=== PATIENT | male | born 1945 | race Caucasian/White ===

== ENCOUNTER 2018-02-14 08:55 | Outpatient (CLI) | payer MEDICARE, OTHER, SELFPAY ==
[2018-02-14 13:00] LABS: INR 2.7 (1.0-3.5); Prothrombin Time 25.4 sec (9.3-10.8)
== END 2018-02-14 08:56 ==
PROVIDERS: PCP Internal Medicine; Visit Provider Internal Medicine
DX: I82.890 Acute embolism and thrombosis of other specified veins (principal); Z79.01 Long term (current) use of anticoagulants
CPT/HCPCS: 36415; 85610

== ENCOUNTER 2018-04-09 09:49 | Outpatient (CLI) | payer MEDICARE, OTHER, SELFPAY ==
[2018-04-09 13:32] LABS: INR 2.9 (1.0-3.5); Prothrombin Time 27.5 sec (9.3-10.8)
== END 2018-04-09 10:09 ==
PROVIDERS: PCP Internal Medicine; Visit Provider Internal Medicine
DX: I82.890 Acute embolism and thrombosis of other specified veins (principal); Z79.01 Long term (current) use of anticoagulants
CPT/HCPCS: 36415; 85610

== ENCOUNTER 2018-05-31 10:16 | Outpatient (CLI) | payer MEDICARE, OTHER, SELFPAY ==
[2018-05-31 14:28] LABS: Prothrombin Time 37.6 sec (9.3-10.8)
== END 2018-05-31 10:36 ==
PROVIDERS: PCP Internal Medicine; Visit Provider Internal Medicine
DX: I82.890 Acute embolism and thrombosis of other specified veins (principal); Z79.01 Long term (current) use of anticoagulants
CPT/HCPCS: 36415; 85610

== ENCOUNTER 2018-06-14 10:01 | Outpatient (CLI) | payer MEDICARE, OTHER, SELFPAY | END 2018-06-14 10:21 | PROVIDERS: PCP Internal Medicine; Visit Provider Internal Medicine | DX: I82.890 Acute embolism and thrombosis of other specified veins (principal); Z79.01 Long term (current) use of anticoagulants | CPT/HCPCS: 36415; 85610 ==

== ENCOUNTER 2018-11-22 12:59 | Outpatient (CLI) | payer MEDICARE, OTHER, SELFPAY ==
[2018-11-22 15:42] LABS: INR 3.1 (0.9-1.1); Prothrombin Time 31.4 sec (9.3-11.0)
== END 2018-11-22 13:19 ==
PROVIDERS: PCP Internal Medicine; Visit Provider Internal Medicine
DX: Z79.01 Long term (current) use of anticoagulants (principal); R69 Illness, unspecified
CPT/HCPCS: 36415; 85610

== ENCOUNTER 2018-12-28 10:39 | Outpatient (CLI) | payer MEDICARE, OTHER, SELFPAY ==
[2018-12-28 15:15] LABS: Prothrombin Time 34.9 sec (9.3-11.0)
[2018-12-28 15:25] LABS: INR 3.4 (0.9-1.1)
== END 2018-12-28 10:59 ==
PROVIDERS: PCP Internal Medicine; Visit Provider Internal Medicine
DX: I82.890 Acute embolism and thrombosis of other specified veins (principal); Z79.01 Long term (current) use of anticoagulants
CPT/HCPCS: 36415; 85610

== ENCOUNTER 2019-02-20 01:21 | Outpatient (CLI) | payer MEDICARE, OTHER, SELFPAY ==
[2019-02-20 12:04] LABS: INR 3.9 (0.9-1.1); Prothrombin Time 39.8 sec (9.3-11.0)
== END 2019-02-20 01:41 ==
PROVIDERS: PCP Internal Medicine; Visit Provider Internal Medicine
DX: I82.890 Acute embolism and thrombosis of other specified veins (principal); Z79.01 Long term (current) use of anticoagulants
CPT/HCPCS: 36415; 85610

== ENCOUNTER 2019-03-13 13:13 | Outpatient (CLI) | payer MEDICARE, OTHER, SELFPAY ==
[2019-03-13 15:52] LABS: INR 3.3 (0.9-1.1); Prothrombin Time 33.8 sec (9.3-11.0)
== END 2019-03-13 13:33 ==
PROVIDERS: PCP Internal Medicine; Visit Provider Internal Medicine
DX: I80.209 Phlebitis and thrombophlebitis of unspecified deep vessels of unspecified lower extremity (principal); Z79.01 Long term (current) use of anticoagulants
CPT/HCPCS: 36415; 85610

== ENCOUNTER 2019-05-07 14:22 | Outpatient (CLI) | payer MEDICARE, OTHER, SELFPAY ==
[2019-05-07 15:10] LABS: INR 2.4 (0.9-1.1); Prothrombin Time 23.8 sec (9.3-11.0)
== END 2019-05-07 14:42 ==
PROVIDERS: PCP Internal Medicine; Visit Provider Internal Medicine
DX: I80.209 Phlebitis and thrombophlebitis of unspecified deep vessels of unspecified lower extremity (principal); Z79.01 Long term (current) use of anticoagulants
CPT/HCPCS: 36415; 85610

== ENCOUNTER 2019-10-07 02:57 | Outpatient (CLI) | payer MEDICARE, OTHER, SELFPAY ==
[2019-10-07 12:37] LABS: INR 2.2 (0.9-1.1); Prothrombin Time 21.6 sec (9.3-11.0)
== END 2019-10-07 03:17 ==
PROVIDERS: PCP Internal Medicine; Visit Provider Internal Medicine
DX: I48.91 Unspecified atrial fibrillation (principal); Z79.01 Long term (current) use of anticoagulants
CPT/HCPCS: 36415; 85610

== ENCOUNTER 2019-11-19 03:16 | Outpatient (CLI) | payer MEDICARE, OTHER, SELFPAY ==
[2019-11-19 11:15] LABS: INR 2.3 (0.9-1.1); Prothrombin Time 22.3 sec (9.3-11.0)
== END 2019-11-19 03:36 ==
PROVIDERS: PCP Internal Medicine; Visit Provider Internal Medicine
DX: I80.209 Phlebitis and thrombophlebitis of unspecified deep vessels of unspecified lower extremity (principal); Z79.01 Long term (current) use of anticoagulants
CPT/HCPCS: 36415; 85610

== ENCOUNTER 2020-01-10 01:46 | Outpatient (CLI) | payer MEDICARE, OTHER, SELFPAY ==
[2020-01-10 12:38] LABS: INR 2.1 (0.9-1.1); Prothrombin Time 20.6 sec (9.3-11.0)
== END 2020-01-10 02:06 ==
PROVIDERS: PCP Internal Medicine; Visit Provider Internal Medicine
DX: Z79.01 Long term (current) use of anticoagulants (principal); I82.890 Acute embolism and thrombosis of other specified veins
CPT/HCPCS: 36415; 85610

== ENCOUNTER 2020-03-03 02:37 | Outpatient (CLI) | payer MEDICARE, OTHER, SELFPAY ==
[2020-03-03 15:11] LABS: INR 3.2 (0.9-1.1); Prothrombin Time 31.4 sec (9.3-11.0)
== END 2020-03-03 02:57 ==
PROVIDERS: PCP Internal Medicine; Visit Provider Internal Medicine
DX: Z79.01 Long term (current) use of anticoagulants (principal)
CPT/HCPCS: 36415; 85610

== ENCOUNTER 2020-03-27 03:55 | Outpatient (CLI) | payer MEDICARE, OTHER, SELFPAY ==
[2020-03-27 15:28] LABS: INR 2.4 (0.9-1.1)
== END 2020-03-27 04:15 ==
PROVIDERS: PCP Internal Medicine; Visit Provider Internal Medicine
DX: I82.890 Acute embolism and thrombosis of other specified veins (principal); Z79.01 Long term (current) use of anticoagulants
CPT/HCPCS: 36415; 85610

== ENCOUNTER 2020-04-23 01:27 | Outpatient (CLI) | payer MEDICARE, OTHER, SELFPAY ==
[2020-04-23 10:47] LABS: INR 2.1 (0.9-1.1); Prothrombin Time 20.5 sec (9.3-11.0)
== END 2020-04-23 01:47 ==
PROVIDERS: PCP Internal Medicine; Visit Provider Internal Medicine
DX: I82.890 Acute embolism and thrombosis of other specified veins (principal); Z79.01 Long term (current) use of anticoagulants
CPT/HCPCS: 36415; 85610

== ENCOUNTER 2020-06-16 03:53 | Outpatient (CLI) | payer MEDICARE, OTHER, SELFPAY ==
[2020-06-16 13:19] LABS: INR 3.1 (0.9-1.1); Prothrombin Time 30.3 sec (9.3-11.0)
== END 2020-06-16 04:13 ==
PROVIDERS: PCP Internal Medicine; Visit Provider Internal Medicine
DX: I48.91 Unspecified atrial fibrillation (principal); Z79.01 Long term (current) use of anticoagulants
CPT/HCPCS: 36415; 85610

== ENCOUNTER 2020-07-30 03:14 | Outpatient (CLI) | payer MEDICARE, OTHER, SELFPAY ==
[2020-07-30 10:46] LABS: INR 2.1 (0.9-1.1); Prothrombin Time 20.9 sec (9.3-11.0)
== END 2020-07-30 03:34 ==
PROVIDERS: PCP Internal Medicine; Visit Provider Internal Medicine
DX: I82.890 Acute embolism and thrombosis of other specified veins (principal); Z79.01 Long term (current) use of anticoagulants
CPT/HCPCS: 36415; 85610

== ENCOUNTER 2020-09-03 02:56 | Outpatient (CLI) | payer MEDICARE, OTHER, SELFPAY ==
[2020-09-03 12:51] LABS: INR 3.4 (0.9-1.1); Prothrombin Time 33.4 sec (9.3-11.0)
== END 2020-09-03 02:57 | disposition home or self-care (01) ==
LOC: LBO 02:57
PROVIDERS: PCP Internal Medicine; Visit Provider Internal Medicine
DX: I82.890 Acute embolism and thrombosis of other specified veins (principal); Z79.01 Long term (current) use of anticoagulants
CPT/HCPCS: 36415; 85610

== ENCOUNTER 2020-10-02 02:32 | Outpatient (CLI) | payer MEDICARE, OTHER, SELFPAY ==
[2020-10-02 13:01] LABS: INR 3.3 (0.9-1.1)
== END 2020-10-02 02:33 | disposition home or self-care (01) ==
LOC: LBO 02:32
PROVIDERS: PCP Internal Medicine; Visit Provider Internal Medicine
DX: I82.890 Acute embolism and thrombosis of other specified veins (principal); Z79.01 Long term (current) use of anticoagulants
CPT/HCPCS: 36415; 85610

== ENCOUNTER 2020-12-02 02:54 | Outpatient (CLI) | payer MEDICARE, OTHER, SELFPAY ==
[2020-12-02 14:21] LABS: INR 1.5 (0.9-1.1)
== END 2020-12-02 02:55 | disposition home or self-care (01) ==
LOC: LBO 02:55
PROVIDERS: PCP Internal Medicine; Visit Provider Internal Medicine
DX: I82.890 Acute embolism and thrombosis of other specified veins (principal); Z79.01 Long term (current) use of anticoagulants
CPT/HCPCS: 36415; 85610

== ENCOUNTER 2021-01-22 01:57 | Outpatient (CLI) | payer MEDICARE, OTHER, SELFPAY ==
[2021-01-22 13:31] LABS: INR 2.9 (0.9-1.1); Prothrombin Time 28.5 sec (9.3-11.0)
== END 2021-01-22 01:58 | disposition home or self-care (01) ==
LOC: LBO 01:57
PROVIDERS: PCP Internal Medicine; Visit Provider Internal Medicine Medical Oncology
DX: I82.890 Acute embolism and thrombosis of other specified veins (principal); Z79.01 Long term (current) use of anticoagulants
CPT/HCPCS: 36415; 85610

== ENCOUNTER 2021-03-11 03:49 | Outpatient (CLI) | payer MEDICARE, SELFPAY ==
[2021-03-11 14:53] LABS: INR 3.2 (0.9-1.1)
== END 2021-03-11 03:50 | disposition home or self-care (01) ==
PROVIDERS: PCP Internal Medicine; Visit Provider Internal Medicine
DX: I80.209 Phlebitis and thrombophlebitis of unspecified deep vessels of unspecified lower extremity (principal); Z79.01 Long term (current) use of anticoagulants
CPT/HCPCS: 36415; 85610

== ENCOUNTER 2021-04-29 02:41 | Outpatient (CLI) | payer MEDICARE, SELFPAY ==
[2021-04-29 13:58] LABS: INR 2.3 (0.9-1.1)
== END 2021-04-29 02:42 | disposition home or self-care (01) ==
PROVIDERS: PCP Internal Medicine; Visit Provider Internal Medicine
DX: Z79.01 Long term (current) use of anticoagulants
CPT/HCPCS: 36415; 80053; 83735; 83880; 85025; 85610

== ENCOUNTER 2021-08-02 02:19 | Outpatient (CLI) | payer MEDICARE, SELFPAY | END 2021-08-02 02:20 | disposition home or self-care (01) | LOC: LBO 02:19 | PROVIDERS: PCP Internal Medicine; Visit Provider Internal Medicine Medical Oncology ==

== ENCOUNTER 2021-08-05 02:09 | Outpatient (CLI) | payer MEDICARE, SELFPAY ==
[2021-08-05 13:51] LABS: INR 3.1 (0.9-1.1); Prothrombin Time 30.2 sec (9.3-11.0)
== END 2021-08-05 02:10 | disposition home or self-care (01) ==
LOC: LBO 02:09
PROVIDERS: PCP Internal Medicine; Visit Provider Internal Medicine
DX: Z79.01 Long term (current) use of anticoagulants (principal); I82.890 Acute embolism and thrombosis of other specified veins
CPT/HCPCS: 36415; 85610

== ENCOUNTER 2021-09-15 01:39 | Outpatient (CLI) | payer MEDICARE, SELFPAY ==
[2021-09-15 10:24] LABS: INR 2.6 (0.9-1.1); Prothrombin Time 25.9 sec (9.3-11.0)
== END 2021-09-15 01:40 | disposition home or self-care (01) ==
LOC: LBO 01:39
PROVIDERS: PCP Internal Medicine; Visit Provider Internal Medicine Hematology & Oncology
DX: Z79.01 Long term (current) use of anticoagulants (principal)
CPT/HCPCS: 36415; 85610

== ENCOUNTER 2021-10-21 02:17 | Outpatient (CLI) | payer MEDICARE, SELFPAY ==
[2021-10-21 15:04] LABS: INR 3.2 (0.9-1.1)
== END 2021-10-21 02:18 | disposition home or self-care (01) ==
PROVIDERS: PCP Internal Medicine; Visit Provider Internal Medicine
DX: I82.890 Acute embolism and thrombosis of other specified veins (principal); Z79.01 Long term (current) use of anticoagulants
CPT/HCPCS: 36415; 85610

== ENCOUNTER 2021-11-09 11:47 | Emergency (ER) | payer MEDICARE, OTHER, SELFPAY ==
[2021-11-09 11:57] VITALS: BP 143/80; PULSE 74; RESP 16; TEMP 36.2; O2SAT 96
--- NOTE | 2021-11-09 12:05 | ED.GENADUL_ITS ---
Discharge Plan Disposition Patient Disposition: HOME Condition: Stable Discharge Details Clinical Impression: Tick bite Primary Care Provider: Rosalio Garner ED Provider: Enoc Duncan Home Meds and New Rx's Prescriptions: Continued atorvastatin 20 mg tablet 20 mg PO ONCE 0RF warfarin 2 mg tablet 2 mg PO ONCE 0RF zolmitriptan 2.5 mg tablet 2.5 mg PRN [id number] Discharge Instructions Instructions: Tick Bite (ED) Additional Instructions: It would appear as though you were able to remove the entire tick. A single dose of doxycycline was given. No systemic symptoms, no suspicion for localized cellulitis. Cool and/or warm compresses every 2 hours for 20 minutes. Please watch for new or worsening symptoms and return to the ER for any concerns. Medical Decision Making 76-year-old gentleman reports a tick bite over the past couple of days, remove the entire tick today. Otherwise asymptomatic. Clinically he appears well, nontoxic, no systemic symptoms. No signs of foreign body, it appears as though the tick was completely removed. We will provide a single dose of 200 mg doxycycline. Patient has no additional questions or concerns and is comfortable with this plan. Standard discharge and return precautions were provided This documentation was generated using [employer] dictation system, please disregard any oddities of phrase or misspellings. HPI General Mode of arrival: ambulatory . Date/Time Provider Initiated Documentation: 11/09/21 12:05 . Limitations to Documentation: no limitations . Information obtained by: patient . HPI Narrative: This is a 76-year-old gentleman presenting to the ER noticing a tick bite on his left hip early this morning. He believes he was able to remove the tick completely. Reports that he believes the tick bite likely could have not been present for more than a couple of days but is unsure of the exact timeline. Denies fever, chills, body aches, bull's-eye rash. He does report minimal discomfort and redness at the site of the bite itself. Related Data Home Medications Medication Instructions Recorded Confirmed atorvastatin 20 mg tablet 20 mg PO ONCE 11/09/21 11/09/21 warfarin 2 mg tablet 2 mg PO ONCE 11/09/21 11/09/21 zolmitriptan 2.5 mg tablet 2.5 mg PRN PRN 11/09/21 11/09/21 Allergies Allergy/AdvReac Type Severity Reaction Status Date / Time No Known Allergies Allergy Unverified 11/09/21 12:02 General Stated Complaint: AnimalBite MARTY: 5 Review of Systems Constitutional Constitutional: Denies fever(s) Musculoskeletal Musculoskeletal: Denies arthralgias Integumentary/Breasts Skin/Breast: Reports erythema and Denies rash PFSH All Active Problems (Updated 11/09/21 @ 12:20 by RAHEEM Almazan) Tick bite (Acute) Social History Smoking risk assessment performed?: No Substance use type: does not use Do you feel safe at home: Yes Do you feel safe in your relationship?: Yes Exam Const General: cooperative, healthy appearing, comfortable and no acute distress Orientation: alert and awake HENCT Head: normal to inspection, normocephalic and atraumatic Eyes Conjunctivae: conjunctivae normal Neck Neck: normal visual inspection, trachea midline and supple Resp Effort & Inspection: normal respiratory effort and able to speak in complete sentences Cardio Rate: regular rate Rhythm: regular rhythm Skin General skin exam: erythema Full body images: 1. Mild macular edema nontender erythema. No warmth induration or fluctuance. Centrally there is a scab with no obvious foreign body. No lymphangitic streaking Neuro General: patient alert, patient awake, moves all extremities and no focal motor deficits Cognition: normal cognition Speech: speech normal Gait: normal gait Sensory Exam: no sensory deficits noted Psych Appearance: grossly normal Mental Status: mental status grossly normal Course Vital Signs Vital signs: Vital Signs Temperature 36.2 C L 11/09/21 11:57 Pulse 74 11/09/21 11:57 Respiratory Rate 16 11/09/21 11:57 Blood Pressure 143/80 H 11/09/21 11:57 Pulse Oximetry 96 11/09/21 11:57 Temperature 36.2 C L 11/09/21 11:57 Pulse 74 11/09/21 11:57 Respiratory Rate 16 11/09/21 11:57 Blood Pressure 143/80 H 11/09/21 11:57 Pulse Oximetry 96 11/09/21 11:57
[2021-11-09] MEDS: Doxycycline Hyclate 100 MG CAP 200 MG PO (12:24)
[2021-11-09 12:30] VITALS: BP 143/80; PULSE 74; RESP 16; TEMP 36.2; O2SAT 96
== END 2021-11-09 12:32 | disposition home or self-care (01) ==
PROVIDERS: Emergency Provider Physician Assistant; PCP Internal Medicine
DX: S70.262A Insect bite (nonvenomous), left hip, initial encounter (principal); W57.XXXA Bitten or stung by nonvenomous insect and other nonvenomous arthropods, initial encounter
CPT/HCPCS: 99283

== ENCOUNTER 2021-12-03 13:21 | Outpatient (CLI) | payer MEDICARE, SELFPAY ==
[2021-12-03 12:37] LABS: INR 2.3 (0.9-1.1)
== END 2021-12-03 13:22 | disposition home or self-care (01) ==
PROVIDERS: PCP Internal Medicine; Visit Provider Internal Medicine
DX: I80.3 Phlebitis and thrombophlebitis of lower extremities, unspecified; Z79.01 Long term (current) use of anticoagulants
CPT/HCPCS: 36415; 85610

== ENCOUNTER 2022-01-01 19:58 | Outpatient (REF) | payer MEDICARE, SELFPAY ==
[2022-01-03 15:29] LABS: COVID-19 RT-PCR UVMMC Result Negative (Negative)
== END 2022-01-01 19:59 | disposition home or self-care (01) ==
LOC: LBN 19:58
PROVIDERS: PCP Internal Medicine; Visit Provider Physician Assistant Medical
DX: Z20.822 Contact with and (suspected) exposure to COVID-19 (principal); R05.8 Other specified cough
CPT/HCPCS: U0003

== ENCOUNTER 2022-03-15 03:27 | Outpatient (CLI) | payer MEDICARE, SELFPAY ==
[2022-03-15 15:14] LABS: INR 3.5 (0.9-1.1); Prothrombin Time 32.8 sec (9.3-11.0)
== END 2022-03-15 03:28 | disposition home or self-care (01) ==
LOC: LBO 03:27
PROVIDERS: PCP Internal Medicine; Visit Provider Internal Medicine
DX: I82.890 Acute embolism and thrombosis of other specified veins (principal); Z79.01 Long term (current) use of anticoagulants
CPT/HCPCS: 36415; 85610

== ENCOUNTER 2022-11-09 03:11 | Outpatient (CLI) | payer MEDICARE, SELFPAY ==
[2022-11-09 10:36] LABS: INR 3.2 (0.9-1.1); Prothrombin Time 32.3 sec (9.3-11.0)
== END 2022-11-09 03:12 | disposition home or self-care (01) ==
LOC: LBO 03:11
PROVIDERS: PCP Internal Medicine; Visit Provider Internal Medicine
DX: Z79.01 Long term (current) use of anticoagulants (principal)
CPT/HCPCS: 36415; 85610

== ENCOUNTER 2022-12-15 12:54 | Outpatient (CLI) | payer MEDICARE, SELFPAY ==
[2022-12-15 16:03] LABS: INR 1.2 (0.9-1.1); Prothrombin Time 12.4 sec (9.3-11.0)
== END 2022-12-15 12:55 | disposition home or self-care (01) ==
LOC: LBO 12:56
PROVIDERS: PCP Internal Medicine; Visit Provider Internal Medicine
DX: Z79.01 Long term (current) use of anticoagulants (principal); I82.890 Acute embolism and thrombosis of other specified veins
CPT/HCPCS: 36415; 85610